=== PATIENT | male | born 1975 | race Caucasian/White ===

== ENCOUNTER → 2020-08-12 | Outpatient (CLI) | payer BC ==
[~2020-08-12] MED LIST: ATOR40TA59 PO; ESCITALOPRAM OX10 MG PO; FEXO1TAB27 PO; FLAX10003 PO; IOHEXOL 180 MG/ML 10 ML VIAL. ONE; LACT1CAP6 PO; MULT-245 PO; OMEG1CAP27 PO; OMEP40CA45 PO; methylPREDNISolone ACETATE 40 MG/ML VIAL. ONE; methylPREDNISolone ACETATE 80 MG/ML VIAL. ONE; tumeric; tylenol arthritis; vitamin d3
--- NOTE | 2020-08-12 12:20 | PDOC1 ---
INITIAL PAIN CONSULT DATE OF SERVICE: DOS: DATE: 08/12/20 TIME: 12:13 CHIEF COMPLAINT: Chief Complaint: Low back and left lower extremity pain Neck and bilateral lower extremity pain HISTORY OF PRESENT ILLNESS: 44-year-old male presents with history of pain low back left lower extremity greater than right but present bilaterally for about 3 years or so worse over the past 6 to 8 months without any specific injury or accident he is aware of also pain the base the neck and bilateral upper extremities right equal to left in the shoulders and arms mostly the posterior aspect of the deltoid and triceps. 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 Patient was aching and cramping in the back and tight and throbbing in the back as well. Patient reports his upper extremity shows some moderate pain which is more radiating and shooting pain less intense than the low back. Patient reports the pain wakes her from sleep at least once or twice a night does not generally affect his bowel bladder control does not affect his ability to walk is putting up with the pain while working and continues to work. Patient is has no chiropractic treatment as well as physical therapy in the past still doing stretching strength exercises on his own currently. Patient tried Tylenol arthritis strength as well as ibuprofen both which do decrease the pain by about 10 to 20% patient rates his disability rating 0-10 10 being worst is a 4 in all categories family home responsibilities social activity recreation occupational activity sexual behavior life support activities and self-care activities. Patient have MRI scans of both the cervical and lumbar spines lumbar spine showing L4-5 mild disc bulge with faint superimposed right paracentral disc protrusion with small annular fissure with central canal patent mild right neuroforaminal stenosis. Spine shows degenerative changes worse at C5-6 with mild broad-based disc bulge superimposed with small protrusion as well as broad-based disc bulge C4-5 C3-4 and C6-7. Patient reports no loss of motor function but significant fatigability of the left lower extremity with standing and walking. PAST MEDICAL HISTORY: PMH: Cigarette smoking, no major medical conditions PREVIOUS SURGERIES: Past Surgical Hx: Hernia repair umbilical at age 1 CURRENT MEDICATIONS: Current Meds: Active Scripts Medications Dose Route/Sig Max Daily Dose Days Date Category Multi Vitamin Daily (Multivitamin) 1 Each Tablet 1 Tab PO DAILY 30 08/12/20 Reported [vitamin d3] 08/12/20 Reported Atorvastatin Calcium 40 Mg Tablet 1 Tab PO DAILY 08/12/20 Reported Flax Oil (Flaxseed Oil) 1,000 Mg Capsule 1,000 Mg PO DAILY 08/12/20 Reported Negin-D 12 Hour Tablet (Fexofenadine/Pseudoephedrine) 1 Each Tab.er.12h 1 Each PO DAILY 08/12/20 Reported [tumeric] 08/12/20 Reported Probiotic (Lactobacillus Acidophilus) 1 Each Capsule 1 Cap PO TID 10 08/12/20 Reported Omeprazole 40 Mg Capsule.dr 1 Cap PO DAILY 08/12/20 Reported [tylenol arthritis] 1 DAILY 08/12/20 Reported Escitalopram Oxalate 10 Mg Tablet 1 Tab PO DAILY 08/12/20 Reported Fish Oil 1,000 Mg Softgel (Bivins-3 Fatty Acids/Fish Oil) 1 Each Capsule 1 Each PO DAILY 08/12/20 Reported ALLERGIES; Allergies: Coded Allergies: No Known Drug Allergies (Unverified , 08/12/20) FAMILY HISTORY: Family Hx: Diabetes SOCIAL HISTORY: Social Hx: Patient drinks about 8 alcoholic drinks a week on average smokes less than a pack a day and has for many years continues to smoke does not use any illegal illicit or recreational drugs is lives with his spouse has 3 child living at home lives in [place], [place], and 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 PHYSICAL EXAM: VS: Blood pressure is 139/74 pulse 72 respirations 18 temperature 98.6 3 Fahrenheit height is 5 foot 8 inches weight is 212 pounds PE: PHYSICAL EXAMINATION: GENERAL: The patient is awake, alert, oriented, appropriate, very pleasant demeanor HEENT: Shows normocephalic, atraumatic. Extraocular movements are intact and symmetrical. Oral cavity: Mucous membranes moist and pink. Dentition is intact. NECK: Shows anterior throat supple without palpable lymphadenopathy noted. Swallow reflex symmetrical. CHEST: Shows normal on inspection. Breath sounds are clear bilaterally, no ra les rhonchi or wheezes auscultated. HEART: Shows S1, S2 clear. No murmurs auscultated. ABDOMEN: Soft, nontender, nondistended, obese. No palpable organomegaly is noted. No rebound or guarding demonstrated. BACK: Shows spine grossly in the midline. Normal-appearing cervical lordotic curvature. There is slightly increased thoracic kyphosis, some minor flattening of the lumbar lordotic curvature. Lumbar paraspinous muscles show symmetrical on inspection, on palpation shows some moderate tenderness diffusely throughout the upper, middle and lower distribution of the paraspinous muscles bilaterally and also into the lower thoracic paraspinous musculature, firm and tender, but without specific trigger points, without radiation of pain. The patient has good rotational motion of the lumbar spine, both laterally as well as extension and flexion without significant difficulty. No tenderness over the spinous processes, sacrum or sacroiliac regions. EXTREMITIES: Lower extremities show deep tendon reflexes 2+ in the patellar and tendo calcaneus tendons. Motor exam is 5 on a scale of 5 with right dorsiflexion, extension, quadriceps and hamstring flexion and 5/5 on the left. Peripheral pulses are 2+ posterior tibial. No peripheral edema is noted bilaterally. Lower extremities are warm and dry to touch, equal in color and appearance. Straight leg raise noted to be negative bilaterally. Gaenslen's and Edinson's maneuvers are negative bilaterally as well. Upper extremities show deep tendon reflexes 2+ in the bicep triceps tendons bilaterally motor exam is strong with 5 out of [address] strength bicep and tricep flexion equal and 5 out of 5 and symmetrical. Shoulder shrug is strong and intact without loss of strength on resistance. The patient is able to stand, stand on his toes that significantly loss of balance, walks with a normal-appearing gait does not appear to favor the right or left lower extremity significantly does not use any assistive devices to ambulate. SKIN: Shows warm and dry, good turgor. No edema. No sores, rashes or bruising throughout. IMPRESSION: Impression: 44-year-old male with long history low back left lower extremity pain as well as neck and bilateral upper extremity pain in a radicular fashion both lumbar and cervical MRI scans lumbar and cervical spines as noted Cigarette smoking Plan: Options were discussed with patient including conservative medical management physical therapies and interventional techniques. Patient would like to interventional techniques. We discussed a lumbar epidural steroid injection using description as well as anatomical models described procedure. Risks were discussed including but not limited to: Bleeding, infection, possibility of epidural hematoma and subsequent neurological compromise, dural puncture, headaches, spinal cord and/or nerve damage, side effects of steroid medication, and poor results regarding pain control. Patient understands and wished to proceed. Patient return to clinic in approximate 2 weeks for follow-up, was counseled as return appointment activity level and side effects to be aware of. Procedure is lumbar epidural steroid injection under local anesthetic using sterile prep and drape at the L4-5 level using C-arm fluoroscopic guidance in both AP and lateral views medications injected is 120 mg Depo-Medrol + 10 mL preservative-free normal saline and 2 mL contrast- condition at discharge is stable patient tolerated procedure well had no complications. DILMA SANDERS MD Aug 12, 2020 12:20
== END | disposition home or self-care (01) ==
LOC: PNCL 10:36
PROVIDERS: ATTEND Anesthesiology
DX: M54.5 Low back pain (principal); M79.605 Pain in left leg; M79.604 Pain in right leg; Z79.899 Other long term (current) drug therapy; Z98.890 Other specified postprocedural states; Z83.3 Family history of diabetes mellitus; Z87.891 Personal history of nicotine dependence
CPT/HCPCS: 62323; J1030; J1040; Q9965

== ENCOUNTER → 2020-08-26 | Outpatient (CLI) | payer BC ==
--- NOTE | 2020-08-26 10:43 | PDOC ---
Progress Note - Pain Clinic Date of Service: DOS: DATE: 08/26/20 TIME: 10:39 Diagnosis: Dx: Lumbar radiculopathy lumbar degenerative disc disease Cervical radiculopathy with cervical degenerative disc disease History or Present Illness: HPI: 44-year-old male returns follow-up status post lumbar epidurals injection x1. Patient was about 90% improvement for the first few weeks the pain returning now but still helping returning the low back into the left greater than right lower extremity posterior gluteus lateral thigh lateral anterior thigh medial lower leg patient ports is intermittent in the lower leg though just pain in the back is his main complaint patient ports that sharp and tight at times can be shooting and radiating the leg but has been increase activities greater ease and comfort doing better with work activities household activities walking greater distances sleeping better at night does not awaken her from sleep. Patient ports pain is a 2 on scale 10 at all times worst average and least is a 2 today. Patient reports no new motor or sensory deficits no new bowel or bladder incontinence or other complaints. Physical Exam: VS: Blood pressure is 130/51 pulse 60 respirations are 16 temperature 98.3 Fahrenheit weight is 209 pounds PE: PHYSICAL EXAMINATION: GENERAL: The patient is awake, alert, oriented, appropriate, very pleasant demeanor. HEENT: Shows normocephalic, atraumatic. Extraocular movements are intact and symmetrical. NECK: Shows anterior throat supple without palpable lymphadenopathy noted. Swallow reflex symmetrical. CHEST: Shows normal on inspection. Breath sounds are clear bilaterally, no rales or rhonchi. HEART: Shows S1, S2 clear. No murmurs auscultated. ABDOMEN: Soft, nontender, nondistended. No palpable organomegaly is noted. BACK: Shows spine grossly in the midline. Normal-appearing cervical lordotic curvature. There is slightly increased thoracic kyphosis, some flattening of the lumbar lordotic curvature. Lumbar paraspinous muscles show symmetrical on inspection, on palpation shows some moderate tenderness diffusely throughout the upper, middle and lower distribution of the paraspinous muscles without specific trigger points, without radiation of pain. The patient has good rotational motion of the lumbar spine, both laterally as well as extension and flexion without significant difficulty. EXTREMITIES: Lower extremities show deep tendon reflexes 2+ in the patellar and tendo calcaneus tendons. Motor exam is 5 on a scale of 5 with right dorsiflexion, extension, quadriceps and hamstring flexion and 5/5 on the left. Peripheral pulses are 1+ posterior tibial. No peripheral edema is noted bilaterally. Lower extremities are warm and dry to touch, equal in color and appearance. SKIN: Shows warm and dry, good turgor. No edema. No sores, rashes or bruising. Procedure: Procedure: Options were discussed with patient. Patient chart reviews her current medication regimen updated current review of systems updated today as well. We will proceed with a second lumbar epidural steroid traction today with fluoroscopic guidance. Risks were discussed including but not limited to: Bleeding, infection, possibility of epidural hematoma and subsequent neurological compromise, dural puncture, headaches, spinal cord and/or nerve damage, side effects of steroid medication, and poor results regarding pain control. Patient understands and wished to proceed. Patient will return to clinic in approximate 2 weeks for follow-up, was counseled as to return appointment activity level and side effects to be aware of. Medication Injected: Med Injected: Procedure is lumbar epidural steroid injection under local anesthetic using sterile prep and drape at the L4-5 level using C-arm fluoroscopic guidance in both AP and lateral views medications injected is 120 mg Depo-Medrol + 10 mL preservative-free normal saline and 2 mL contrast- condition at discharge is stable patient tolerated procedure well had no complications. Condition at Discharge: Condition at Discharge: Condition at discharge stable, patient alert procedure well and had no complications. DILMA SANDERS MD Aug 26, 2020 10:43
--- NOTE | 2020-08-26 11:04 | PDOC4 ---
PROCEDURE Procedure Patient was consented for lumbar epidural steroid injection. Risks were dis cussed including but not limited to: Bleeding, infection, possibility of epidural hematoma and subsequent neurological compromise, dural puncture, headaches, spinal cord and/or nerve damage, side effects of steroid medication, and poor results regarding pain control. Patient understands and wished to proceed. Procedure is lumbar epidural steroid injection under local anesthetic using sterile prep and drape at the L4-5 level using C-arm fluoroscopic guidance in both AP and lateral views medications injected is 120 mg Depo-Medrol + 10 mL preservative-free normal saline and 2 mL contrast- condition at discharge is stable patient tolerated procedure well had no complications. DILMA SANDERS MD Aug 26, 2020 11:04
== END | disposition home or self-care (01) ==
LOC: PNCL 09:37
PROVIDERS: ATTEND Anesthesiology
DX: M51.16 Intervertebral disc disorders with radiculopathy, lumbar region (principal); M50.10 Cervical disc disorder with radiculopathy, unspecified cervical region; Z79.899 Other long term (current) drug therapy
CPT/HCPCS: 62323; J1030; J1040; Q9965

== ENCOUNTER → 2020-12-01 | Outpatient (CLI) | payer BC ==
--- NOTE | 2020-12-01 09:53 | PDOC ---
Progress Note - Pain Clinic Date of Service: DOS: DATE: 12/01/20 TIME: 09:51 Diagnosis: Dx: Lumbar radiculopathy with lumbar degenerative disc disease Cervical radiculopathy with cervical degenerative disc disease History or Present Illness: HPI: 45-year-old male returns follow-up status post lumbar epidural steroid injections x2. Patient last seen August 26, 2020 did very well with about 80% improvement for almost 3 months in the low back and left lower extremity patient reports it is beginning to return now slowly in the low back and left lower extremity posterior gluteus posterior lateral thigh lateral anterior thigh anterior medial thigh but only with extended walking standing patient reports has been sleeping much better increase his distance walking doing household activities work activities all with greater ease and comfort and travel with greater ease as well. Patient reports it does not awaken her from sleep anymore and is quite pleased with that as well. Patient rates his pain as a 7 on a scale of 10 is worse over the past week 6 on average/and is a 5 today patient reported sharp and stabbing in the low back and the left lower extremity. Patient reports no new motor or sensory deficits no bowel or bladder incontinence or other complaints. Physical Exam: VS: Blood pressure is 137/84 pulse 63 respirations 18 temperature 98.8 F height is 5 foot 8 inches weight is 205 PE: PHYSICAL EXAMINATION: GENERAL: The patient is awake, alert, oriented, appropriate, very pleasant demeanor HEENT: Shows normocephalic, atraumatic. Extraocular movements are intact and symmetrical. Oral cavity: Mucous membranes moist and pink. Dentition is intact. Patient has full rosas and mustache NECK: Shows anterior throat supple without palpable lymphadenopathy noted. Swallow reflex symmetrical. CHEST: Shows normal on inspection. Breath sounds are clear bilaterally, no rales or rhonchi. HEART: Shows S1, S2 clear. No murmurs auscultated. ABDOMEN: Soft, nontender, nondistended, obese. No palpable organomegaly is noted. No rebound or guarding demonstrated. BACK: Shows spine grossly in the midline. Normal-appearing cervical lordotic curvature. There is slightly increased thoracic kyphosis, some minor flattening of the lumbar lordotic curvature. Lumbar paraspinous muscles show symmetrical on inspection, on palpation shows some moderate tenderness diffusely throughout the upper, middle and lower distribution of the paraspinous muscles without specific trigger points, without radiation of pain. The patient has good rotational motion of the lumbar spine, both laterally as well as extension and flexion without significant difficulty. No tenderness over the spinous processes, sacrum or sacroiliac regions. EXTREMITIES: Lower extremities show deep tendon reflexes 2 in the patellar and tendo calcaneus tendons. Motor exam is 5 on a scale of 5 with right dorsiflexion, extension, quadriceps and hamstring flexion and 5/5 on the left. Peripheral pulses are 1+ posterior tibial. No peripheral edema is noted bilaterally. Lower extremities are warm and dry to touch, equal in color and appearance. SKIN: Shows warm and dry, good turgor. No edema. No sores, rashes or bruising throughout. Procedure: Procedure: Options were discussed with the patient. Patient chart was reviewed his his current medication regimen updated current review of systems updated today as well. We will proceed with a third in the series lumbar epidural steroid ejections today with fluoroscopic guidance. Risks were discussed including but not limited to: Bleeding, infection, possibility of epidural hematoma and subsequent neurological compromise, dural puncture, headaches, spinal cord and/or nerve damage, side effects of steroid medication, and poor results regarding pain control. Patient understands and wished to proceed. Patient will return to clinic in approximate 2 weeks for follow-up, was counseled as return appointment activity level and side effects to be aware of. Medication Injected: Med Injected: Procedure is lumbar epidural steroid injection under local anesthetic using sterile prep and drape at the L4-5 level using C-arm fluoroscopic guidance in both AP and lateral views medications injected is 120 mg Depo-Medrol +10mL preservative-free normal saline and 2 mL contrast- condition at discharge is stable patient tolerated procedure well had no complications. Condition at Discharge: Condition at Discharge: Condition at discharge stable, patient tolerated procedure well had no complications. DILMA SANDERS MD December 01, 2020 09:53
== END | disposition home or self-care (01) ==
LOC: PNCL 08:47
PROVIDERS: ATTEND Anesthesiology
DX: M51.16 Intervertebral disc disorders with radiculopathy, lumbar region (principal); M50.10 Cervical disc disorder with radiculopathy, unspecified cervical region; Z79.899 Other long term (current) drug therapy
CPT/HCPCS: 62323; J1030; J1040; Q9965